=== PATIENT | female | born 1965 | race African-American/Black ===

== ENCOUNTER 2019-02-08 17:39 | Emergency (ER) | payer MEDICAID, OTHER ==
--- NOTE | 2019-02-08 18:17 | RAD ---
XR Knee Lt 4 View STANDARD History: Knee pain Comparison: None. Findings: Small joint effusion. Mild enthesopathic change of the quadriceps tendon. Osteophyte format ion of the lateral tibial spine. No acute fracture or malalignment. Impression: Low-grade degenerative change. No acute osseous abnormality.
== END 2019-02-08 18:42 | disposition home or self-care (01) ==
LOC: BURERS 17:39
DX: M25.562 Pain in left knee (principal); E78.5 Hyperlipidemia, unspecified; F17.210 Nicotine dependence, cigarettes, uncomplicated; Z79.899 Other long term (current) drug therapy
CPT/HCPCS: 85379

== ENCOUNTER 2022-06-29 11:04 | Emergency (ER) | payer OTHER ==
[2022-06-29] MEDS ORDERED: Ketorolac Tromethamine 30 MG/ML VIAL ONE (11:24)
[2022-06-29 11:42] LABS: #Basophils 0.2 thou/uL (0.0-0.2); #Eosinphils 0.1 thou/uL (0.0-0.7); #Lymphocytes 2.7 thou/uL (1.20-3.40); #Monocytes 0.4 thou/uL (0.11-0.59); %Basophils 2.6 % (0.0-1.0); %Eosinophils 1.5 % (0.0-10.0); %Lymphocytes 42.4 % (21.0-51.0); %Monocytes 6.8 % (0.0-10.0); %Neutrophils 46.7 % (42.0-75.0); Hemoglobin 14.2 g/dL (12.0-16.0); Mean Corpuscular HGB CONC 32.8 g/dL (32.0-36.0); Mean Corpuscular Hemoglobin 32.5 pg (27.0-31.0); Mean Platelet Volume 7.1 fL (7.4-10.4); Platelet Count 263 10x3/uL (130-400); RBC Distribution Width 11.7 % (11.5-14.5); Red Blood Cell (RBC) Count 4.37 mill/uL (4.20-5.40); White Blood Cell (WBC) Count 6.4 10x3/uL (4.8-10.8)
[2022-06-29 11:46] LABS: ALT (SGPT) 27 U/L (8-55); AST (SGOT) 19 U/L (5-34); Albumin 4.2 g/dL (3.5-5.0); Alkaline Phosphatase 82 U/L (40-110); Anion Gap 13 mmol/L (10-20); BUN (Urea Nitrogen) 10 mg/dL (9.8-20.1); Bilirubin, Total 0.4 mg/dL (0.2-1.2); Calc. Creatinine Clearance 0 mL/min (70-130); Calcium 9.7 mg/dL (7.8-10.44); Carbon Dioxide 26 mmol/L (22-29); Chloride 107 mmol/L (98-107); Estimated GFR 103; Globulin 2.9 g/dL (2.4-3.5); Glucose 108 mg/dL (70-105); Protein, Total 7.1 g/dL (6.0-8.3); Sodium 142 mmol/L (136-145)
== END 2022-06-29 12:53 | disposition home or self-care (01) ==
LOC: BURERS 11:04
DX: M25.561 Pain in right knee (principal); R07.89 Other chest pain; F17.210 Nicotine dependence, cigarettes, uncomplicated; E03.9 Hypothyroidism, unspecified; E78.5 Hyperlipidemia, unspecified; Z79.899 Other long term (current) drug therapy; K21.9 Gastro-esophageal reflux disease without esophagitis
CPT/HCPCS: 71046; 80053; 84484; 85025; 85379; 93005; 94760; 96374; J1885

== ENCOUNTER 2023-08-26 10:11 | Emergency (ER) | payer OTHER ==
[2023-08-26] MEDS ORDERED: Ibuprofen 800 MG TAB ONE (10:28)
== END 2023-08-26 11:18 | disposition home or self-care (01) ==
LOC: BURERS 10:11
DX: B34.9 Viral infection, unspecified (principal); E78.00 Pure hypercholesterolemia, unspecified; Z87.891 Personal history of nicotine dependence
CPT/HCPCS: 87081; 87430; 87635; 87804; 99283

== ENCOUNTER 2024-01-20 17:31 | Emergency (ER) | payer OTHER ==
[2024-01-20] MEDS ORDERED: predniSONE 20 MG TAB ONE (18:03)
== END 2024-01-20 18:09 | disposition home or self-care (01) ==
LOC: BURERS 17:31
DX: M54.41 Lumbago with sciatica, right side (principal); Z87.891 Personal history of nicotine dependence
CPT/HCPCS: 99283; J7512

== ENCOUNTER 2024-07-12 01:47 | Emergency (ER) | payer OTHER ==
[2024-07-12 02:28] LABS: Bilirubin Negative (Negative); Blood, Urine Large (Negative); Glucose, Urine (Dipstick) Negative (Negative); Ketone, Urine Negative (Negative); Leukocyte Small (Negative); Nitrite Negative (Negative); Protein, Urine (Dipstick) 100 mg/dL (Neg-Trace); Urobilinogen 0.2 mg/dL (Less than 2)
[2024-07-12 02:31] LABS: Clarity Cloudy (Clear)
[2024-07-12 02:32] LABS: Bacteria/HPF 1+ HPF (None Seen); CAUTI Indications for Culture Acute Hematuria; RBC/HPF Greater than 50 HPF (0-3); Squamous Epithelial 0-3 HPF (0-3)
[2024-07-12 02:34] LABS: Urine Culture Reflex No No
[2024-07-12] MEDS ORDERED: Cephalexin 250 MG CAP ONE (04:36)
== END 2024-07-12 05:00 | disposition home or self-care (01) ==
LOC: BURERS 01:47
DX: N30.91 Cystitis, unspecified with hematuria (principal); Z87.891 Personal history of nicotine dependence
CPT/HCPCS: 74176; 81001

== ENCOUNTER 2025-04-05 13:39 | Emergency (ER) | payer OTHER ==
[2025-04-05] MEDS ORDERED: Mag-Al Plus 1200/1200/120 MG (30 mL) UDCUP ONE (14:42)
[2025-04-05] MEDS ORDERED: HYDROcodone/Acetaminophen 5/325 mg Tablet ONE (14:42)
[2025-04-05] MEDS ORDERED: Lidocaine Viscous Sol 2% 15 ml UD Cup ONE (14:42)
[2025-04-05 14:56] LABS: Glucose, Urine (Dipstick) Negative (Negative); Leukocyte Moderate (Negative); Protein, Urine (Dipstick) Negative (Neg-Trace); Specific Gravity, Urine Less/Equal 1.005 (1.005-1.030)
[2025-04-05 14:59] LABS: Pregnancy Test - Urine (BHCG) Negative (Negative); Pregu Control Background? CLEAR/WHITE (CLR/WHITE); Pregu Control Bar Appear? YES (CONTROL BAR)
[2025-04-05 15:02] LABS: Bacteria/HPF 1+ HPF (None Seen); CAUTI Indications for Culture Dysuria,urgency,freq; RBC/HPF 0-3 HPF (0-3)
[2025-04-05 15:04] LABS: Urine Culture Reflex Yes Yes
[2025-04-05 15:22] LABS: Hematocrit 38.9 % (36.0-47.0); Hemoglobin 13.6 g/dL (12.0-16.0); Mean Corpuscular Hemoglobin 31.2 pg (27.0-31.0); Mean Corpuscular Volume 89.3 fl (78.0-98.0); Platelet Count 339 10x3/uL (130-400); Red Blood Cell (RBC) Count 4.36 mill/uL (4.20-5.40); White Blood Cell (WBC) Count 8.3 10x3/uL (4.8-10.8)
[2025-04-05 15:36] LABS: ALT (SGPT) 13 U/L (Less than 34); AST (SGOT) 19 U/L (11-34); Albumin 4.1 g/dL (3.1-4.5); Alkaline Phosphatase 68 U/L (40-110); Anion Gap 16 mmol/L (10-20); BUN (Urea Nitrogen) 8 mg/dL (9.8-20.1); Bilirubin, Total 0.4 mg/dL (0.3-1.2); Calc. Creatinine Clearance 0 mL/min (70-130); Calcium 9.7 mg/dL (7.8-10.44); Carbon Dioxide 24 mmol/L (22-29); Chloride 103 mmol/L (98-107); Globulin 3.6 g/dL (2.4-3.5); Glucose 93 mg/dL (70-105); Potassium 3.5 mmol/L (3.5-5.1); Sodium 139 mmol/L (136-145)
[2025-04-05 15:45] LABS: MDiff Complete? YES
[2025-04-05 15:48] LABS: Lipase Less than 4 U/L (8-78)
[2025-04-05] MEDS ORDERED: Sulfameth/Trimethoprim DS 800-160mg TAB ONE (15:57)
== END 2025-04-05 16:07 | disposition home or self-care (01) ==
LOC: BURERS 13:39
DX: N39.0 Urinary tract infection, site not specified (principal); Z87.891 Personal history of nicotine dependence
CPT/HCPCS: 36415; 80053; 81001; 81025; 83605; 83690; 85025; 87086; 99284; Q0162

== ENCOUNTER 2025-05-26 07:52 | Emergency (ER) | payer OTHER | END 2025-05-26 09:07 | disposition home or self-care (01) | LOC: BURERS 07:52 | DX: M54.16 Radiculopathy, lumbar region (principal); E78.00 Pure hypercholesterolemia, unspecified; E66.9 Obesity, unspecified; Z87.891 Personal history of nicotine dependence | CPT/HCPCS: 96372; 99283; J1885 ==